=== PATIENT | male | born 1980 | race Caucasian/White ===

== ENCOUNTER 2018-12-18 13:45 | Emergency (ER) | payer MEDICAID ==
[2018-12-18] MEDS: KETOROLAC 30 MG INJ IM (15:45)
[2018-12-18 16:14] LABS: URINE BLOOD (Dip) POC Trace-lysed (NEGATIVE); URINE GLUCOSE (Dip) POC Negative (NEGATIVE); URINE KETONES (Dip) POC 1+ (NEGATIVE); URINE LEUKOCYTE EST (Dip) POC Negative (NEGATIVE); URINE NITRITE (Dip) POC Negative (NEGATIVE); URINE TOTAL PROTEIN POC Negative (NEGATIVE)
[2018-12-18 16:14] LABS: URINE PH (Dip) POC 5.5 (5.0-8.5)
== END 2018-12-18 16:39 | disposition home or self-care (01) ==
LOC: FTE 13:45
DX: M54.9 Dorsalgia, unspecified (principal)
CPT/HCPCS: 81003; 96372; 99284-25